=== PATIENT | male | born 1960 | race Caucasian/White ===

== ENCOUNTER 2016-09-06 13:42 | Emergency (ER) | payer OTHER ==
[~2016-09-06] VITALS: Ht 182.9 cm; Wt 73.7 kg
[2016-09-06 13:43] VITALS: BP 134/84
[2016-09-06] MEDS ORDERED: EPIPEN ADU0.3 MG/0.3 IM (14:20)
== END 2016-09-06 15:04 | disposition home or self-care (01) ==
LOC: EME 13:42
DX: T63.461D Toxic effect of venom of wasps, accidental (unintentional), subsequent encounter (principal); L03.113 Cellulitis of right upper limb; F17.200 Nicotine dependence, unspecified, uncomplicated
CPT/HCPCS: 99281; 99283